=== PATIENT | female | born 1935 ===

== ENCOUNTER 2020-05-24 14:02 | Inpatient (IN) | payer OTHER ==
[~2020-05-24] VITALS: Wt 5.0 kg
[2020-05-24] MEDS ORDERED: LIPITOR40 MG (14:08)
== END 2020-05-30 18:51 | disposition home or self-care (01) | DRG 178 ==
LOC: ER 14:02 → SEC-K 19:19 → MEDI 19:19 → SEC-K 23:54 → MEDI 23:55
PROVIDERS: ADMIT Specialist; ATTEND Specialist
PROC: BW28ZZZ Computerized Tomography (CT Scan) of Head (ICD-10-PCS; principal; 2020-05-24)
PROC: BB24ZZZ Computerized Tomography (CT Scan) of Bilateral Lungs (ICD-10-PCS; 2020-05-24)
PROC: BW21Y0Z Computerized Tomography (CT Scan) of Abdomen and Pelvis using Other Contrast, Unenhanced and Enhanced (ICD-10-PCS; 2020-05-24)
PROC: 4A033R1 Measurement of Arterial Saturation, Peripheral, Percutaneous Approach (ICD-10-PCS; 2020-05-24)
PROC: 0T9B70Z Drainage of Bladder with Drainage Device, Via Natural or Artificial Opening (ICD-10-PCS; 2020-05-24)
PROC: B24BZZZ Ultrasonography of Heart with Aorta (ICD-10-PCS; 2020-05-25)
PROC: B345ZZZ Ultrasonography of Bilateral Common Carotid Arteries (ICD-10-PCS; 2020-05-25)
PROC: 4A12X4Z Monitoring of Cardiac Electrical Activity, External Approach (ICD-10-PCS; 2020-05-25)
DX: A31.0 Pulmonary mycobacterial infection (principal); J47.1 Bronchiectasis with (acute) exacerbation; J47.0 Bronchiectasis with acute lower respiratory infection; J20.9 Acute bronchitis, unspecified; I08.3 Combined rheumatic disorders of mitral, aortic and tricuspid valves; I65.23 Occlusion and stenosis of bilateral carotid arteries; I10 Essential (primary) hypertension; R55 Syncope and collapse; Z03.818 Encounter for observation for suspected exposure to other biological agents ruled out

== ENCOUNTER 2021-11-08 08:00 | Outpatient (CLI) | payer OTHER ==
[~2021-11-08 08:00] MED LIST: LIPITOR40 MG
== END 2021-11-08 08:30 | disposition home or self-care (01) ==
LOC: PPH VACUNA 08:00
PROVIDERS: ATTEND Emergency Medicine Pediatric Emergency Medicine
DX: Z23 Encounter for immunization (principal)